=== PATIENT | female | born 1950 | race Caucasian/White ===

== ENCOUNTER 2020-10-07 10:01 | Emergency (ER) | payer MEDICARE ==
[~2020-10-07] VITALS: Ht 162.6 cm; Wt 68.2 kg
== END 2020-10-07 11:32 | disposition home or self-care (01) ==
LOC: ER 10:01
DX: R11.10 Vomiting, unspecified (principal); Z20.822 Contact with and (suspected) exposure to COVID-19
CPT/HCPCS: 36415; 87635; 99283